=== PATIENT | female | born 1995 | race Caucasian/White ===

== ENCOUNTER 2016-12-25 18:32 | Emergency (ER) | payer MEDICAID ==
[~2016-12-25] VITALS: Ht 160 cm; Wt 93.0 kg
[2016-12-25 23:47] VITALS: BP 118/79
== END 2016-12-25 23:48 | disposition home or self-care (01) ==
LOC: ER 20:17
DX: M25.511 Pain in right shoulder (principal); J45.909 Unspecified asthma, uncomplicated; F17.200 Nicotine dependence, unspecified, uncomplicated; R20.2 Paresthesia of skin
CPT/HCPCS: 73030; 81025; 99284; A4565